=== PATIENT | male | born 1980 | race African-American/Black ===

== ENCOUNTER 2024-04-25 11:14 | Emergency (ER) | payer OTHER, SELFPAY ==
[2024-04-25 11:16] VITALS: BP 121/90
[2024-04-25 11:35] VITALS: BMI 38.5
--- NOTE | 2024-04-25 11:56 | ED.GENMED ---
History of Present Illness
General
Chief Complaint: Fever
Source: patient
Exam Limitations: none
Time Seen by Provider: 04/25/24 11:45
History of Present Illness
History of Present Illness:
44 year old male presents from [facility] with persistent abdominal pain, vomiting and now fever. Abdominal pain x 5 days, is diffuse and constant more so to the upper abdomen. He notes minimal bowel movements. No current alcohol use. Denies nsaid use.
No other complaints at this time.
Past History
Past History
ED Past Medical History: Arrthythmia (Atrial fib), Asthma, HTN, Psychiatric (Depresion) and Other (Diverticulitis)
ED Past Surgical History: None
Patient has exhibited threatening behavior?: No
Social History
Tobacco: Former smoker
Alcohol: None
Drug: None
Personal: Single
Living: with roommate
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
Family History
Family History: Other (nc)
Phy Exam
Physical Exam
Physical Exam:
General: uncomfortable appearing male, NAd
HEENT: nc/aT
heart: tachycardic, irregular
Lungs: subtle wheeze bilaterally
ABd: soft, but diffusely tender more so to the upper abdomen
Ext: no cyanosis or edema
Skin: multiple patches of hypopigmented skin
Course
Orders/Labs/Results
Orders:
Orders
04/25/24 11:47
Complete Blood Count/With Diff Urgent
Comprehensive Metabolic Panel Urgent
Lipase Urgent
Comment: ADD ON
UA Reflex to Culture [Urinalysis Reflex To Culture] Urgent
Date Specimen was Collected: 04/25/24
Time Specimen was Collected: 11:46
Urine Microscopic Reflex Cult Urgent
04/25/24 11:51
Ketorolac [Toradol] 15 mg IV NOW STA
Ondansetron Injectable [Zofran] 4 mg IV NOW STA
04/25/24 11:52
Add On- LAB Urgent
Tests Added?: lipase
CT Abd/pelvis W Iv Cont Urgent
Comment:
Reason For Exam: abodminal paing, vomiting, fever
04/25/24 12:02
Lactic Acid Urgent
04/25/24 13:59
Acetaminophen [Tylenol] 1,000 mg PO NOW STA
Ipratropium/Albuterol Sulfate [Duoneb] 3 ml INH R NOW STA
04/25/24 15:33
0.9% Sodium Chloride 1000 ml [Nss] 1,000 ml IV BOLUS
Abnormal Lab Results
04/25/24
11:47
MCV 79.3 L fL
(80.0-94.0)
Abs Immat Gran (auto) 0.1 H 10^3/uL
(0-0.05)
Absolute Monos (auto) 1.1 H 10^3/uL
(0.1-0.6)
Immature Gran % 0.6 H %
(0-0.5)
Monocytes % 13.5 H %
(1.7-9.3)
Sodium 132 L mmol/L
(135-145)
Carbon Dioxide 20 L mmol/L
(22-30)
Glucose 327 H mg/dl
(70-99)
Total Bilirubin 2.8 H mg/dl
(0.2-1.3)
Alkaline Phosphatase 135 H U/L
(38-126)
Urine Ketones 1+ A
(Negative)
Ur Occult Blood Reflex 2+ A
(Negative)
Urine RBC 3-6 A /HPF
(0-2)
Urine Glucose 3+ A
(Negative)
Urine Albumin (Reflex) 1+ A
(Neg - Trace)
04/25/24 11:47
04/25/24 11:47
Vital Signs
Initial and Last Documented VS:
Initial Vital Signs
Temp Pulse Resp BP Pulse Ox
103.2 F H 133 16 121/90 98
04/25/24 11:16 04/25/24 11:16 04/25/24 11:16 04/25/24 11:16 04/25/24 11:16
Last Documented Vital Signs
Temp Pulse Resp BP Pulse Ox
98.9 F 97 16 117/73 98
04/25/24 16:00 04/25/24 14:30 04/25/24 11:16 04/25/24 14:18 04/25/24 11:16
MDM/Problems Addressed
Differential Diagnosis Includes:
Fever, abdominal pain, vomiting: consider viral illness, obstruction, biliary colic, diverticulitis
Fluids, zofran toradol ordered
Labs pending, CT ordered
Chronic conditions affecting care:
none
Acute Exacerbation and/or Progression of Chronic Illness:
History of diverticulitis, presentation not typical of diverticulitis
*Critical Care Note
Total Time (30-74mins, 75-104mins- exclusive of procedures): Not Applicable
Data Reviewed
Review of Other/Old Records Reveals: Other (Call in information)
Update Note
Update Note:
CT reviewed shows liquid stool in the colon suggest diarrheal illness. No other acute finding noted on CT. There are small lung nodules noted on CT. patient feeling much better after hydration and fever control and nausea control. Temperature has
returned to normal. He received 2 L of fluid. No indication for admission. Stable for discharge
ED Attending Note
-
Portions of this chart may have been created with voice recognition software.� Occasional wrong word or��sound alike� substitutions may have occurred due to the inherent limitations of voice recognition software.
Discharge Plan
Departure
Patient Disposition: Home (Routine Discharge)
Date of Disposition: 04/25/24
Time of Disposition: 17:50
Patient with high blood pressure during this ER visit?: No
Discharge Problem:
Nausea & vomiting
Instructions: Viral Syndrome (DC)
Prescriptions:
New
ondansetron 4 mg tablet,disintegrating
4 mg PO Q8H PRN (Reason: nausea and vomiting) Qty: 10 0RF
No Action
loratadine 10 MG tablet
10 mg PO DAILYPRN PRN (Reason: ALLERGIES)
montelukast 10 MG tablet
10 mg PO QPM
acetaminophen 325 MG tablet
650 mg PO Q4HPRN PRN (Reason: headache fever) 0RF
diltiazem HCl 240 MG capsule,extended release 24hr
240 mg PO DAILY Qty: 30 0RF
aspirin 81 MG tablet,delayed release (DR/EC)
81 mg PO DAILY 0RF
bupropion HCl 100 MG tablet sustained-release 12 hr
100 mg PO DAILY Qty: 30 0RF
gabapentin 300 MG capsule
300 mg PO BID Qty: 60 0RF
guaifenesin [Mucus Relief ER] 600 MG tablet extended release 12hr
600 mg PO Q12 0RF
prednisone 10 MG tablet
10 mg PO DAILY Qty: 30 0RF
Rx Instructions:
4 tabs daily x 3 days, 3 tabs daily x 3 days, 2 tabs daily x 3 days, 1 tab daily x 3 days then stop.
albuterol sulfate 1 PUFF HFA aerosol inhaler
2 puff inhalation R Q4HPRN PRN (Reason: wheezing) Qty: 1 0RF
prednisone 10 mg Tablet
See Rx Instructions .ROUTE .COMPLEX Qty: 30 0RF
Rx Instructions:
Take By Mouth:
40 mg daily x3 days, 30 mg daily x3 days,
20 mg daily x3 days, 10 mg daily x3 days.
Referrals:
Erasmo Hung MD [Family Provider] -
Activity Restrictions/Additional Instructions:
Drink plenty of fluids. Start with clear liquids and advance to bland diet as tolerated. Use Zofran if needed for nausea peer return for worsening symptoms. Continue fever control if needed with Tylenol or ibuprofen
Interventions
Interventions:
*Risk Screen - Suicide Last Done: 04/25/24 11:16
*General Assessment Last Done: 04/25/24 11:16
*Neglect/Abuse Screening Last Done: 04/25/24 11:16
ED- Fall Risk Assessment Last Done: 04/25/24 12:52
*ED COVID-19 Vaccine History Last Done: 04/25/24 13:54
ED- Neurological Assessment Last Done: 04/25/24 12:52
ED-Skin Assessment Last Done: 04/25/24 12:52
Discharge Date and Time
Print Language: RUSSIAN
[2024-04-25] MEDS: ZOFRAN 4 MG IV (11:58)
[2024-04-25] MEDS: TORADOL 15 MG IV (11:58)
[2024-04-25 12:00] LABS: % Basophils 0.8 % (0-2); % Eosinophils 0.3 % (0-6); % Immature Granulocytes 0.6 % (0-0.5); % Lymphocytes 25.4 % (20.5-51.1); % Monocytes 13.5 % (1.7-9.3); % Neutrophils 59.4 % (42.2-75.2); Absolute Basophils 0.1 10^3/uL (0-0.2); Absolute Immature Granulocytes 0.1 10^3/uL (0-0.05); Absolute Monocytes 1.1 10^3/uL (0.1-0.6); Absolute Neutrophils 4.7 10^3/uL (1.4-6.5); Hematocrit 39.5 % (39.0-52.0); Mean Corp Hgb Conc. 35.4 g/dL (33.0-37.0); Mean Corpuscular Hgb 28.1 pg (27.0-31.0); Mean Corpuscular Volume 79.3 fL (80.0-94.0); Mean Platelet Volume 9.9 fL (7.4-10.4); Nucleated Red Blood Cells % 0.3 % (-); Platelet Count 179 10^3/uL (130-400); Red Blood Cell Count 4.98 10^6/uL (4.70-6.10); Red Cell Dist. Width 13.6 % (11.5-14.5); White Blood Cell Count 7.9 10^3/uL (4.8-10.8)
[2024-04-25 12:17] LABS: Urine Albumin 1+ (Neg - Trace); Urine Bilirubin Negative (Negative); Urine Character Clear (Clear); Urine Color Yellow; Urine Glucose 3+ (Negative); Urine Ketone 1+ (Negative); Urine Leukocyte Negative (Negative); Urine Nitrite Negative (Negative); Urine Occult Blood 2+ (Negative); Urine Specific Gravity 1.015 (<1.030); Urine Urobilinogen Negative (Neg - 1+)
[2024-04-25 12:27] LABS: Lactic Acid 1.9 mmol/L (0.7-2.0)
[2024-04-25 12:39] LABS: ALT (SGPT) 35 U/L (0-50); AST (SGOT) 39 U/L (17-59); Albumin 4.6 g/dl (3.5-5.0); Alkaline Phosphatase 135 U/L (38-126); Blood Urea Nitrogen 17 mg/dl (9-20); Calcium 9.3 mg/dl (8.4-10.2); Carbon Dioxide 20 mmol/L (22-30); Chloride 98 mmol/L (98-107); Estimated Creatinine Clearance > 125 ml/min; Glucose 327 mg/dl (70-99); Potassium 3.7 mmol/L (3.5-5.1); Sodium 132 mmol/L (135-145); Total Bilirubin 2.8 mg/dl (0.2-1.3); Total Protein 7.9 g/dl (6.3-8.2); eGFR > 60.00
[2024-04-25 12:49] VITALS: BP 99/62
[2024-04-25 12:55] LABS: Lipase 82 U/L (23-300)
[2024-04-25 13:00] VITALS: BP 120/93
[2024-04-25 13:12] LABS: Urine Amorphous Seen; Urine Mucus Many
[2024-04-25 13:14] LABS: Urine White Cell 0-2 /HPF (0-5)
[2024-04-25 14:18] VITALS: BP 117/73
[2024-04-25] MEDS: DUONEB 3 ML INH (14:35)
[2024-04-25] MEDS: TYLENOL 1000 MG PO (14:36)
[2024-04-25] MEDS: NSS 1000 IV (15:41)
[2024-04-25 18:11] VITALS: BP 131/72
== END 2024-04-25 18:12 | disposition home or self-care (01) ==
LOC: EMR 11:14
PROVIDERS: Physician Assistant; EMERGENCY PHYSICIAN Emergency Medicine; FAMILY PHYSICIAN Family Medicine
DX: R11.2 Nausea with vomiting, unspecified (principal)
CPT/HCPCS: 99285; 96374; 96375; 96361; 94640; 74177; 80053; 81003; 81015; 83605; 83690; 85025; Q9967